=== PATIENT | female | born 1945 ===

== ENCOUNTER 2023-09-13 06:31 | Day surgery (SDC) | payer OTHER ==
[~2023-09-13 06:31] MED LIST: AMLODIP PO; BREO ELLIPTA 21 EACH IH; CALTRATE+D3 PL1 EAC1; ECOTRIN81 MG PO; FAMO PO; HYZAAR 100-251 EACH PO; SIMVAST PO; SYNTHROID88 MCG PO
[2023-09-13] MEDS ORDERED: OXYC1TAB9 PO (10:53)
== END 2023-09-13 14:40 | disposition home or self-care (01) ==
LOC: CIR.AMB 06:31
PROVIDERS: ATTEND Surgery
DX: D12.9 Benign neoplasm of anus and anal canal (principal); K62.1 Rectal polyp; K62.0 Anal polyp; K62.89 Other specified diseases of anus and rectum; K62.5 Hemorrhage of anus and rectum; K64.8 Other hemorrhoids; Z20.822 Contact with and (suspected) exposure to COVID-19; I10 Essential (primary) hypertension; Z88.0 Allergy status to penicillin